=== PATIENT | female | born 1990 | race Two or more races ===

== ENCOUNTER 2022-04-26 13:34 | Emergency (ER) | payer MEDICAID, OTHER ==
[~2022-04-26] VITALS: Ht 152.4 cm; Wt 77.1 kg
[2022-04-26 13:34] VITALS: BP 147/84
[2022-04-26] MEDS ORDERED: TRAM-297 PO (16:56)
== END 2022-04-26 18:17 | disposition home or self-care (01) ==
LOC: ER 13:34
DX: G43.909 Migraine, unspecified, not intractable, without status migrainosus (principal)
CPT/HCPCS: 70450